=== PATIENT | male | born 1965 | race African-American/Black ===

== ENCOUNTER 2025-07-04 17:39 | Inpatient (IN) | payer MEDICAID ==
[~2025-07-04] VITALS: Ht 175.3 cm; Wt 102.0 kg
[2025-07-04] MEDS: RINGERS SOLUTION,LACTATED 1,000 ML IV ONE (18:22)
[2025-07-04 18:42] LABS: APPEARANCE,URINE CLEAR (CLEAR); GLUCOSE, URINE (UA) >=1000 mg/dL (NEGATIVE); LEUKOCYTE ESTERASE ,URINE SMALL (NEGATIVE); NITRATE,URINE NEGATIVE (NEGATIVE); OCCULT BLOOD,URINE NEGATIVE (NEGATIVE); SPECIFIC GRAVITIY, URINE 1.034 (1.003-1.030)
[2025-07-04 18:43] LABS: PLATELET COUNT (AUTO) 309 K/uL (150-450); RED BLOOD CELL COUNT(AUTO) 4.64 MIL/uL (4.50-5.90); RED CELL DISTRIBUTION WIDTH 15.4 % (11.5-14.5); WHITE BLOOD COUNT (AUTO) 4.5 K/uL (4.5-11.0)
[2025-07-04 18:49] LABS: ACETONE,BLOOD NEGATIVE (NEGATIVE)
[2025-07-04 18:50] LABS: CALCIUM, TOTAL 8.0 mg/dL (8.8-10.5); CREATININE 1.00 mg/dL (0.60-1.30); GLOMERULAR FILTR. RATE CALC > 60 mL/min (>60); GLUCOSE,RANDOM 355 mg/dL (70-110); SODIUM SERUM 140 mmol/L (136-145); UREA NITROGEN, BLOOD 16 mg/dL (7-18)
[2025-07-04 19:00] LABS: ASPARTATE AMINOTRANSFERASE 17 U/L (15-37); TOTAL PROTEIN, SERUM 6.7 g/dL (6.4-8.2)
[2025-07-04 19:02] LABS: SQUAMOUS EPITHELIAL CELL,UR Few /LPF (None Seen)
[2025-07-04] MEDS: INSULIN LISPRO 100 UNITS/ML SQ ONE (19:23)
[2025-07-04] MEDS: ONDANSETRON HCL 4 MG/2 ML VIAL IVP ONE (21:02)
[2025-07-04 21:52] LABS: COVID AG,FIA SOURCE NASAL SWAB
[2025-07-04 22:18] LABS: INFLUENZA TYPE A NEGATIVE FOR TYPE A (NEGATIVE); INFLUENZA TYPE B NEGATIVE FOR TYPE B (NEGATIVE); SARS-COV2 (COVID) ANTIGEN,FIA Negative (Negative)
[2025-07-04] MEDS ORDERED: DEXTROSE 50%-WATER 25 GM/50 ML SYRINGE IVP PRN (22:45)
[2025-07-04 23:50] LABS: LACTIC ACID 1.4 mmol/L (0.4-2.0)
[2025-07-04] MEDS: ONDANSETRON HCL 4 MG/2 ML VIAL IVP PRN (23:53)
[2025-07-04] MEDS: AZITHROMYCIN 500 MG/NS 250 ML IV ONE (23:54)
[2025-07-05] MEDS: INSULIN GLARGINE,HUM.REC.ANLOG 100 UNITS/ML SQ SCH (00:01)
[2025-07-05] MEDS: HEPARIN SODIUM,PORCINE 5,000 UNITS/ML VIAL SQ SCH (00:11)
[2025-07-05] MEDS ORDERED: IOHEXOL 300 MG/ML 100 ML VIAL ONE (00:15)
[2025-07-05] MEDS ORDERED: SODIUM CHLORIDE 0.9% 100 ML ONE (00:15)
[2025-07-05] MEDS ORDERED: IOHEXOL 350 MG/ML 100 ML VIAL ONE (01:06)
[2025-07-05] MEDS: ACETAMINOPHEN 325 MG TABLET PO PRN (01:18)
[2025-07-05] MEDS: CefTRIAXone 1 GM/DEXTROSE 50 ML IV ONE (01:19)
[2025-07-05] MEDS: RINGERS SOLUTION,LACTATED 500 ML IV ONE (01:20)
[2025-07-05 02:47] LABS: ABG BASE EXCESS 3.2 mmol/L (-2.0-3.0); ABG CARBOXYHEMOGLOBIN 3.3 % (0.5-1.5); ABG HCO3 26.4 mmol/L (21.0-28.0); ABG METHEMOGLOBIN 0.5 % (0.0-1.5); ABG OXYGEN CONTENT 20.3 mL/dL (15.0-23.0); ABG OXYGEN SATURATION 95.9 % (94.0-98.0); ABG OXYHEMOGLOBIN 92.3 % (94.0-98.0); ABG PCO2 48 mmHg (32.0-48.0); ABG PH 7.388 (7.350-7.450); ABG TOTAL HEMOGLOBIN 15.6 G/dL (13.5-17.5); FRACTIONATED INSPIRED OXYGEN 28.0 % (21-100.0); PO2, ARTERIAL BG 75.4 mmHg (83.0-108.0); SOURCE, BLOOD GAS ARTERIAL; TEMPERATURE, FAHRENHEIT, BG 97.6 FAHREN (96.0-98.6)
[2025-07-05 02:50] LABS: SITE, BLOOD GAS RT BRACHIAL
[2025-07-05 02:51] LABS: ABG A-A DIFF O2 68.3 mmHg (10-20.0); ALLEN TEST, BLOOD GAS POSITIVE; FLOW, BLOOD GAS 2.00 L/min (0.00-15.00); O2 DEVICE,BLOOD GAS CANNULA (ROOM AIR)
[2025-07-05] MEDS ORDERED: HEPARIN SODIUM,PORCINE 5,000 UNITS/ML VIAL IVP ONE (03:00)
[2025-07-05] MEDS ORDERED: HEPARIN SODIUM,PORCINE 5,000 UNITS/ML VIAL IVP PRN ×2 (03:00)
[2025-07-05] MEDS ORDERED: HEPARIN SODIUM 25000 UNITS/D5W 250 ML IV PRN (03:00)
[2025-07-05 03:30] LABS: TROPONIN I-HIGH SENSITIVITY 35 ng/L (<76)
[2025-07-05] MEDS: ENOXAPARIN SODIUM 100 MG/ML PF SYRINGE SQ ONE (04:23)
[2025-07-05 04:40] VITALS: BP 160/93; PULSE 92; RESP 19; TEMP 97.9; O2SAT 96
[2025-07-05 06:43] LABS: CALCIUM, TOTAL 8.3 mg/dL (8.8-10.5); CREATININE 0.80 mg/dL (0.60-1.30); GLOMERULAR FILTR. RATE CALC > 60 mL/min (>60); GLUCOSE,RANDOM 216 mg/dL (70-110); SODIUM SERUM 140 mmol/L (136-145); UREA NITROGEN, BLOOD 11 mg/dL (7-18)
[2025-07-05 06:44] LABS: PLATELET COUNT (AUTO) 322 K/uL (150-450); RED BLOOD CELL COUNT(AUTO) 4.94 MIL/uL (4.50-5.90); RED CELL DISTRIBUTION WIDTH 14.8 % (11.5-14.5); WHITE BLOOD COUNT (AUTO) 5.1 K/uL (4.5-11.0)
[2025-07-05 06:59] LABS: TROPONIN I-HIGH SENSITIVITY 33 ng/L (<76)
[2025-07-05 07:41] LABS: PLATELET MORPHOLOGY COMMENT LARGE PLTS PRESENT
[2025-07-05 07:55] VITALS: BP 129/67; PULSE 91; RESP 18; TEMP 98.1; O2SAT 96
[2025-07-05] MEDS: DOCUSATE SODIUM 100 MG CAPSULE PO SCH (08:53)
[2025-07-05 11:21] LABS: GLUCOMETER DEV NAME(LOC) 5N.2C; GLUCOSE,POINT OF CARE 195 MG/DL (70-110)
[2025-07-05 11:45] VITALS: BP 143/82; PULSE 98; RESP 19; TEMP 98; O2SAT 96
[2025-07-05] MEDS ORDERED: APIX5TAB PO (12:01)
[2025-07-05] MEDS ORDERED: CEPH-558 PO (12:01)
[2025-07-05] MEDS ORDERED: AMLO-257 PO (12:01)
[2025-07-05] MEDS ORDERED: GLIP5TAB16 PO (12:02)
[2025-07-05 15:33] VITALS: BP 134/91; PULSE 87; RESP 19; TEMP 98; O2SAT 95
[2025-07-05 20:09] VITALS: BP 157/91; PULSE 94; RESP 19; TEMP 98.4; O2SAT 100
[2025-07-05] MEDS: APIXABAN 5 MG TABLET PO SCH (20:34)
[2025-07-05 21:57] VITALS: BP 121/77; PULSE 87; RESP 18; TEMP 97.5; O2SAT 95
[2025-07-05] MEDS ORDERED: SODIUM CHLORIDE 0.9% 500 ML IV ONE (23:59)
[2025-07-06] MEDS: CefTRIAXone 1 GM/DEXTROSE 50 ML IV SCH (00:18)
[2025-07-06 04:19] VITALS: BP 133/91; PULSE 92; RESP 20; TEMP 98.1; O2SAT 97
[2025-07-06] MEDS: INSULIN LISPRO 100 UNITS/ML SQ PRN (05:24)
[2025-07-06 05:46] LABS: GLUCOMETER DEV NAME(LOC) 5N.2C; GLUCOSE,POINT OF CARE 125 MG/DL (70-110)
[2025-07-06 07:35] LABS: GLUCOMETER DEV NAME(LOC) 6N.1C; GLUCOSE,POINT OF CARE 179 MG/DL (70-110)
[2025-07-06 08:45] VITALS: BP 143/93; PULSE 85; RESP 20; TEMP 97.3; O2SAT 96
== END 2025-07-06 10:50 | disposition home or self-care (01) | DRG 133 ==
LOC: EMS 17:39 → EDBD 17:39 → EDH 22:42 → EDBEDREQ 22:50 → 5N 07-05 04:47 → 6S 07-05 21:56
PROVIDERS: ADMIT Internal Medicine; ATTEND Internal Medicine
DX: J96.01 Acute respiratory failure with hypoxia (principal); I26.99 Other pulmonary embolism without acute cor pulmonale; E11.65 Type 2 diabetes mellitus with hyperglycemia; Z20.822 Contact with and (suspected) exposure to COVID-19; Z59.71 Insufficient health insurance coverage
CPT/HCPCS: 71045; 71275; 74177; 80048; 80076; 81001; 82009; 82010; 82805; 82962; 83605; 83690; 83735; 83880; 84145; 84484; 85025; 85379; 85610; 85730; 87040; 87086; 87804; 93005; 99285; G0378; J0360; J0456; J0696; J1644; J1650; J1815; J2405; J7040; J7050; J7120; Q9967; 36415-L1; 36415-TC